=== PATIENT | female | born 1950 | race Hispanic/Latino ===

== ENCOUNTER 2018-04-27 15:35 | Outpatient (CLI) | payer BC ==
--- NOTE | 2018-04-27 22:43 | XRay Report ---
FINAL REPORT PROCEDURE: XRAY ANKLE COMPLETE LEFT TECHNIQUE: LEFT ankle radiographs, AP, lateral, and oblique views. CPT 52836 HISTORY: pain COMPARISON: No prior studies are available for comparison. FINDINGS: Internal fixation plates and screws are identified in the distal tibia and fibula. There is narrowing of the tibiotalar joint space with suggestion of mild degree lateral subluxation of tibia over talus. Moderate degree soft tissue swelling is noted. Medial malleolar fracture line is visualized. 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
== END 2018-04-27 15:36 | disposition home or self-care (01) ==
LOC: XRAY 15:35
PROVIDERS: ATTEND Orthopaedic Surgery
DX: M19.072 Primary osteoarthritis, left ankle and foot (principal)

== ENCOUNTER 2018-10-02 07:22 | Outpatient (CLI) | payer BC ==
--- NOTE | 2018-10-02 09:41 | Ultrasound Report ---
ULTRASOUND ABDOMEN LIMITED INDICATION: Hepatitis, small bowel tumor. Whipple procedure in 2015. Cholecystectomy. COMPARISON: None similar. FINDINGS: Right upper quadrant sonography suggests mild diffuse hepatic coarsening, minimally echogenic and nonspecific, though presumably intrinsic liver disease in the given setting. Subtle hepatic surface waviness questioned on a couple of images. No definite focal suspicious lesions or biliary dilatation. Gallbladder surgically absent. Common bile duct is 5.7 mm. Imaged pancreas, nonaneurysmal abdominal aorta and IVC grossly within normal limits. Unremarkable right kidney estimated at 9 x 4 x 4.3 cm with cortical thickness of 1 cm. CONCLUSION: Coarse liver and cholecystectomy without acute right upper quadrant sonographic abnormality, as described. Please correlate. Thank you for the opportunity to participate in this patient's care.
== END 2018-10-02 07:23 | disposition home or self-care (01) ==
LOC: US 07:22
PROVIDERS: ATTEND Internal Medicine Gastroenterology
DX: D49.0 Neoplasm of unspecified behavior of digestive system (principal); B17.0 Acute delta-(super) infection of hepatitis B carrier; Z90.49 Acquired absence of other specified parts of digestive tract
CPT/HCPCS: 36415; 76705; 87517

== ENCOUNTER 2018-10-22 08:21 | Outpatient (CLI) | payer BC ==
[2018-10-22 09:50] LABS: Basophils # (Auto) 0.1 K/mm3 (0.0-0.1); Basophils % (Auto) 1.1 % (0.0-1.8); Eosinophils # (Auto) 0.6 K/mm3 (0.0-0.4); Eosinophils % (Auto) 8.6 % (0.0-4.3); Hematocrit 25.8 % (30.3-42.9); Lymphocytes # (Auto) 1.7 K/mm3 (1.2-5.4); Lymphocytes % (Auto) 23.4 % (13.4-35.0); Mean Corpuscular HGB Conc 31 % (30-34); Mean Corpuscular Volume 74 fl (79-97); Monocytes # (Auto) 0.6 K/mm3 (0.0-0.8); Monocytes % (Auto) 7.5 % (0.0-7.3); Platelet Count 411 K/mm3 (140-440); Red Cell Distribution Width 17.1 % (13.2-15.2)
[2018-10-22 21:26] LABS: Chol/HDL Ratio 2.32 %
== END 2018-10-22 08:22 | disposition home or self-care (01) ==
LOC: LAB 08:21
PROVIDERS: ATTEND Internal Medicine
DX: Z00.01 Encounter for general adult medical examination with abnormal findings (principal); D64.9 Anemia, unspecified; R73.03 Prediabetes; K29.00 Acute gastritis without bleeding
CPT/HCPCS: 36415; 80061; 82306; 82607; 82728; 82747; 83036; 83550; 85025

== ENCOUNTER 2019-04-09 14:26 | Outpatient (CLI) | payer BC ==
[2019-04-09 15:04] LABS: Hematocrit 24.3 % (30.3-42.9); Hemoglobin 7.4 gm/dl (10.1-14.3); Mean Corpuscular HGB Conc 30 % (30-34); Platelet Count 387 K/mm3 (140-440); Red Blood Count 3.88 M/mm3 (3.65-5.03); Red Cell Distribution Width 18.1 % (13.2-15.2)
[2019-04-09 15:09] LABS: Mean Corpuscular Volume 63 fl (79-97)
[2019-04-09 15:17] LABS: Alanine Aminotransferase 12 units/L (7-56); BUN/Creatinine Ratio 30; Blood Urea Nitrogen 21 mg/dL (7-17); Calcium 9.1 mg/dL (8.4-10.2); Chol/HDL Ratio 2.18 %; HDL Cholesterol 74 mg/dL (40-59); Hemolysis Index 0; LDL Cholesterol,Direct 96 mg/dL (50-130)
== END 2019-04-09 14:27 | disposition home or self-care (01) ==
LOC: LAB 14:26
PROVIDERS: ATTEND Internal Medicine
DX: Z13.220 Encounter for screening for lipoid disorders (principal); Z13.21 Encounter for screening for nutritional disorder; Z13.29 Encounter for screening for other suspected endocrine disorder; R73.03 Prediabetes; F32.9 Major depressive disorder, single episode, unspecified; R79.89 Other specified abnormal findings of blood chemistry
CPT/HCPCS: 36415; 80053; 80061; 82306; 82607; 83036; 84443; 85027

== ENCOUNTER 2019-04-16 10:36 | Outpatient (CLI) | payer BC ==
--- NOTE | 2019-04-16 16:03 | Mammography Report ---
BILATERAL DIGITAL SCREENING MAMMOGRAMS WITH CAD INDICATION: Routine screening. COMPARISONS: None available. However, she indicated that she had had a mammogram at [facility] in 2017. FINDINGS: Craniocaudal and mediolateral oblique views of both breasts were obtained using 2-D digital acquisition. In addition to standard review, the examination was analyzed for possible abnormalities using a computer-assisted detection device (iCAD). The breast tissue is heterogeneously dense, which may obscure small masses. A right focal asymmetry requires comparison with the prior mammogram or additional imaging. No sidra ectural distortion or suspicious calcifications. The left breast is negative. IMPRESSION: Comparison with the previous mammogram is recommended. We will attempt to obtain a prior mammogram fo r comparison. If we do not obtain a prior mammogram within 30 days, a revised report will be issued r ecommending a recall for additional imaging. Please be advised that the patient should not schedule a n appointment for return until adequate time (at least 2 weeks) has passed breast to obtain the prior mammogram. BI-RADS CATEGORY 0: INCOMPLETE - NEED ADDITIONAL IMAGING EVALUATION AND/OR PRIOR MAMMOGRAMS FOR COMP ARISON Information is entered into a reminder system for a target due date for the next mammogram. The resul ts and recommendations were sent to the patient by mail. Signer Name: Medardo Espinoza MD Signed: 04/16/2019 3:58 PM Workstation Name: [id number]
== END 2019-04-16 10:37 | disposition home or self-care (01) ==
LOC: MAMMO 10:36
PROVIDERS: ATTEND Internal Medicine
DX: Z12.31 Encounter for screening mammogram for malignant neoplasm of breast (principal)
CPT/HCPCS: 77067

== ENCOUNTER 2019-05-11 11:19 | Outpatient (CLI) | payer BC ==
[2019-05-11 11:55] LABS: Hematocrit 31.6 % (30.3-42.9); Hemoglobin 10.2 gm/dl (10.1-14.3); Mean Corpuscular HGB Conc 32 % (30-34); Mean Corpuscular Volume 76 fl (79-97); Platelet Count 315 K/mm3 (140-440); Red Blood Count 4.17 M/mm3 (3.65-5.03)
[2019-05-11 11:56] LABS: Red Cell Distribution Width 31.7 % (13.2-15.2)
[2019-05-11 19:21] LABS: Iron 61 ug/dL (37-170); Total Iron Binding Capacity 421 mcg/dL (250-450)
== END 2019-05-11 11:20 | disposition home or self-care (01) ==
LOC: LAB 11:19
PROVIDERS: ATTEND Internal Medicine Hematology & Oncology
DX: D64.9 Anemia, unspecified (principal)
CPT/HCPCS: 36415; 82607; 82728; 82747; 83550; 85027; 85045

== ENCOUNTER 2019-08-09 11:19 | Outpatient (CLI) | payer BC ==
[2019-08-09 12:00] LABS: Hematocrit 34.7 % (30.3-42.9); Hemoglobin 11.6 gm/dl (10.1-14.3); Mean Corpuscular HGB Conc 33 % (30-34); Mean Corpuscular Volume 88 fl (79-97); Platelet Count 267 K/mm3 (140-440); Red Blood Count 3.96 M/mm3 (3.65-5.03); Red Cell Distribution Width 17.4 % (13.2-15.2)
[2019-08-09 12:26] LABS: Alanine Aminotransferase 22 units/L (7-56); Albumin 3.9 g/dL (3.9-5); BUN/Creatinine Ratio 29; Blood Urea Nitrogen 20 mg/dL (7-17); Calcium 9.2 mg/dL (8.4-10.2); Hemolysis Index 5; Iron 71 ug/dL (37-170); Total Iron Binding Capacity 294 mcg/dL (250-450)
== END 2019-08-09 11:20 | disposition home or self-care (01) ==
LOC: LAB 11:19
PROVIDERS: ATTEND Internal Medicine Hematology
DX: D64.9 Anemia, unspecified (principal)
CPT/HCPCS: 36415; 80053; 82607; 82728; 82747; 83550; 85027; 85045

== ENCOUNTER 2019-08-23 08:30 | Outpatient (CLI) | payer BC ==
[2019-08-23 08:49] LABS: Basophils # (Auto) 0.1 K/mm3 (0.0-0.1); Basophils % (Auto) 0.9 % (0.0-1.8); Eosinophils # (Auto) 0.3 K/mm3 (0.0-0.4); Eosinophils % (Auto) 4.7 % (0.0-4.3); Hematocrit 35.4 % (30.3-42.9); Hemoglobin 11.7 gm/dl (10.1-14.3); Lymphocytes # (Auto) 1.5 K/mm3 (1.2-5.4); Lymphocytes % (Auto) 24.5 % (13.4-35.0); Mean Corpuscular HGB Conc 33 % (30-34); Mean Corpuscular Volume 88 fl (79-97); Monocytes # (Auto) 0.4 K/mm3 (0.0-0.8); Monocytes % (Auto) 7.1 % (0.0-7.3); Platelet Count 270 K/mm3 (140-440); Red Cell Distribution Width 17.8 % (13.2-15.2)
[2019-08-23 09:21] LABS: Iron 56 ug/dL (37-170); Total Iron Binding Capacity 309 mcg/dL (250-450)
== END 2019-08-23 08:31 | disposition home or self-care (01) ==
LOC: LAB 08:30
PROVIDERS: ATTEND Internal Medicine
DX: D64.9 Anemia, unspecified (principal)
CPT/HCPCS: 36415; 82728; 83550; 85025

== ENCOUNTER 2019-09-23 08:50 | Outpatient (CLI) | payer BC ==
[2019-09-23] MEDS ORDERED: REGADENOSON 0.4 MG/5 ML INJ IV ONE ×2 (10:13→11:21)
--- NOTE | 2019-09-24 10:25 | Treadmill Report ---
NUCLEAR CARDIAC IMAGING REPORT INDICATION FOR PROCEDURE: Chest pain. Informed consent was obtained. Vasodilator stress was achieved with the intravenous administration of 0.4 mg of Lexiscan per protocol. Nuclear cardiac imaging was performed following the intravenous administration of technetium-99m Myoview per protocol. Gated SPECT imaging demonstrates a post-stress left ventricular ejection fraction of 40%. The left ventricle was mildly diffusely hypokinetic. Myocardial perfusion imaging demonstrates no significant cavity change between stress and rest. There is a small mild mid anterior reversible perfusion abnormality. Nuclear cardiac imaging demonstrates mild post-stress left ventricular systolic dysfunction. There is no evidence of myocardial necrosis. A mid anterior perfusion abnormality suggestive of potential occlusive disease in the distribution of the diagonal branch of the left anterior descending coronary artery is noted. A significant degree of ischemia was not seen. [facility]# [id number] DESIREE/SANJIV
== END 2019-09-23 08:51 | disposition home or self-care (01) ==
LOC: ECHO 08:50
PROVIDERS: ATTEND Internal Medicine
DX: I34.0 Nonrheumatic mitral (valve) insufficiency (principal); R07.89 Other chest pain; R55 Syncope and collapse; D50.8 Other iron deficiency anemias; Z87.19 Personal history of other diseases of the digestive system
CPT/HCPCS: 78452; 93017; 93306; A9502; J2785

== ENCOUNTER 2020-06-20 08:23 | Outpatient (CLI) | payer BC ==
[2020-06-20 08:58] LABS: Basophils # (Auto) 0.1 K/mm3 (0.0-0.1); Eosinophils # (Auto) 0.4 K/mm3 (0.0-0.4); Eosinophils % (Auto) 6.6 % (0.0-4.3); Hematocrit 36.2 % (30.3-42.9); Hemoglobin 11.8 gm/dl (10.1-14.3); Lymphocytes # (Auto) 1.5 K/mm3 (1.2-5.4); Lymphocytes % (Auto) 22.5 % (13.4-35.0); Mean Corpuscular HGB Conc 33 % (30-34); Mean Corpuscular Volume 88 fl (79-97); Monocytes # (Auto) 0.5 K/mm3 (0.0-0.8); Monocytes % (Auto) 7.4 % (0.0-7.3); Platelet Count 357 K/mm3 (140-440); Red Blood Count 4.11 M/mm3 (3.65-5.03); Red Cell Distribution Width 14.5 % (13.2-15.2)
[2020-06-20 09:23] LABS: Alanine Aminotransferase 19 units/L (7-56); Albumin 3.9 g/dL (3.9-5); Blood Urea Nitrogen 16 mg/dL (7-17); Chol/HDL Ratio 2.13 %; HDL Cholesterol 76 mg/dL (40-59); Hemolysis Index 2; Iron 84 ug/dL (37-170); LDL Cholesterol,Direct 76 mg/dL (50-130)
[2020-06-20 09:34] LABS: BUN/Creatinine Ratio 23
== END 2020-06-20 08:24 | disposition home or self-care (01) ==
LOC: LAB 08:23
PROVIDERS: ATTEND Internal Medicine
DX: Z00.00 Encounter for general adult medical examination without abnormal findings (principal); R73.03 Prediabetes; D64.9 Anemia, unspecified; Z13.220 Encounter for screening for lipoid disorders; Z13.29 Encounter for screening for other suspected endocrine disorder; Z13.21 Encounter for screening for nutritional disorder
CPT/HCPCS: 36415; 80053; 80061; 82306; 82607; 82728; 83036; 83540; 84443; 85025